=== PATIENT | female | born 1990 | race Caucasian/White ===

== ENCOUNTER 2018-06-11 22:02 | Emergency (ER) | END 2018-06-11 22:35 | disposition home or self-care (01) ==

== ENCOUNTER → 2019-04-09 | Outpatient (CLI) | payer BC ==
[~2019-04-09] MED LIST: KEN25O TOP; TRIA15CR55 TOP
== END | disposition home or self-care (01) ==
LOC: LAB 12:14
PROVIDERS: ATTEND Obstetrics & Gynecology
DX: Z32.00 Encounter for pregnancy test, result unknown (principal)

== ENCOUNTER → 2019-05-04 | Outpatient (CLI) | payer BC | END | disposition home or self-care (01) | LOC: LAB 16:11 | PROVIDERS: ATTEND Obstetrics & Gynecology | DX: Z34.82 Encounter for supervision of other normal pregnancy, second trimester (principal) | CPT/HCPCS: 84443; 86703; 86803 ==

== ENCOUNTER → 2019-05-21 | Outpatient (CLI) | payer BC | END | disposition home or self-care (01) | LOC: LAB 10:17 | PROVIDERS: ATTEND Obstetrics & Gynecology | DX: Z32.00 Encounter for pregnancy test, result unknown (principal) ==

== ENCOUNTER 2019-06-13 18:18 | Emergency (ER) | payer BC ==
[~2019-06-13] VITALS: Ht 157.5 cm; Wt 64.6 kg
[~2019-06-13 18:18] MED LIST changes: +CEPH-443 PO; +MUPI22OI2 TOP
[2019-06-13 18:22] VITALS: BP 124/62; PULSE 93; RESP 18; Ht 157.5 cm; Wt 64.6 kg
--- NOTE | 2019-06-13 19:03 | ERD ---
ER Documentation Chief Complaint Chief Complaint LEFT EAR PAIN/SWELLING X4DAYS; 21WKS PREG HPI 29-year-old female, currently at 21 weeks , presents the emergency department, complaining of 4 days with progressive swelling and tenderness of the left ear. The patient denies headache, no fever, no chills, in regards of her , no complaints at this time. ROS All systems reviewed and are negative except as per history of present illness. Medications Home Meds Active Scripts Mupirocin* (Bactroban*) 2% -22 Gram Oint...g., 1 APPLIC TOP BID for 7 Days, EA Prov:SUSAN ZURITA MD 06/13/19 Cephalexin* (Keflex*) 500 Mg Capsule, 500 MG PO BID for 5 Days, CAP Prov:SUSAN ZURITA MD 06/13/19 Triamcinolone Acetonide* (Kenalog*) 0.1%-15GM Cr, 1 APPLIC TOP TID for 7 Days, #2 TUB Prov:JOHANNA SESAY MD 06/11/18 Triamcinolone Acetonide* (Kenalog*) 0.025%-15GM Oint, 1 APPLIC TOP TID, #1 EA Prov:JOHANNA SESAY MD 06/11/18 Allergies Allergies: Coded Allergies: No Known Allergy (Unverified , 06/11/18) PMhx/Soc Medical and Surgical Hx: pt denies Medical Hx, pt denies Surgical Hx Hx Miscellaneous Medical Probl: No Hx Alcohol Use: No Hx Substance Use: No Hx Tobacco Use: No Smoking Status: Never smoker FmHx Family History: No diabetes, No coronary disease Physical Exam Vitals Vital Signs Date Temp Pulse Resp B/P (MAP) Pulse Ox O2 O2 Flow FiO2 Time Delivery Rate 06/13/19 97.8 93 18 124/62 97 18:22 (82) Physical Exam Patient alert, oriented, vital signs stable. HEAD: Normocephalic, atraumatic. EYES: PERRLA, EOMI, Sclera and conjunctiva appear normal. NOSE: Clear and patent nostrils. EARS: Left ear with significant erythema and edema of the canal, tympanic membranes WNL. MOUTH: normal lips and tongue, no oral lesions. THROAT: Normal oropharynx, no tonsillar exudates. NECK: Supple, No lymphadenopathy. Full ROM without pain or tenderness. HEART: RRR, no rubs, murmurs, clicks or gallops. LUNGS: Clear to auscultation. ABDOMEN: Soft, non-tender without masses or hepatosplenomegaly. EXTREMITIES: No edema bilaterally. BACK: Full ROM, no deformity, normal back exam NEURO: Cranial nerves grossly intact, no motor or sensory deficit SKIN: No rashes, no petechia. Procedures/MDM Vital signs stable, differential diagnosis include but not limited to: infection bacterial/viral/fungal. Tonsillitis, eustachian dysfunction, allergies, foreign body, cholesteatoma. Less likely mastoiditis, malignant otitis, meningitis. Physical examination and clinical presentation consistent most likely with Left otitis externa During the ED course the patient remained stable, no new complaints. Clinical impression discussed with the patient who agrees with management. The patient is stable to be treated outpatient and will be discharged home with a Rx for antibiotics. Some side effects of prescribed medications (headache, rash, nausea, vomiting, diarrhea, interactions with other medications) were reviewed. The patient was instructed to follow up with the primary care provider in the next 48h. If symptoms persist, worsen or new symptoms develop, then patient should return to the ED immediately. Disclaimer: Inadvertent spelling and grammatical errors are likely due to EHR/dictation software use and do not reflect on the overall quality of patient care. Also, please note that the electronic time recorded on this note does not necessarily reflect the actual time of the patient encounter. Departure Diagnosis: Primary Impression: Left otitis externa Condition: Stable Patient Instructions: External Ear Infection (Adult) Additional Instructions: Thank you very much for allowing us to participate in your care. Your health and safety is our top priority at [facility]. The evaluation in the emergency department has been done to rule out an acute emergency. Chronic, [id number] conditions may have not been evaluated; therefore, you need to follow up with a primary care provider in the next 48h. If symptoms persist, worsen or new symptoms develop, then patient should return to the ED immediately. Call your primary care doctor TOMORROW for an appointment during the next 2-4 days and bring all the information provided. Have prescriptions filled and follow precisely the directions on the label. If the symptoms get worse and your provider is unavailable, return to the Emergency Department immediately. SUSAN ZURITA MD Jun 13, 2019 19:03
== END 2019-06-13 19:14 | disposition home or self-care (01) ==
LOC: FTE 18:18
DX: O26.892 Other specified pregnancy related conditions, second trimester (principal); H60.92 Unspecified otitis externa, left ear; Z3A.21 21 weeks gestation of pregnancy
CPT/HCPCS: 99283

== ENCOUNTER → 2019-07-27 | Outpatient (CLI) | payer BC ==
[~2019-07-27] MED LIST changes: +PNV11TAB PO
== END | disposition home or self-care (01) ==
LOC: LAB 11:46
PROVIDERS: ATTEND Obstetrics & Gynecology
DX: O24.410 Gestational diabetes mellitus in pregnancy, diet controlled (principal); Z3A.00 Weeks of gestation of pregnancy not specified
CPT/HCPCS: 82950; 85025